=== PATIENT | male | born 1980 | race Caucasian/White ===

== ENCOUNTER 2017-06-06 11:14 | Emergency (ER) | payer SELFPAY ==
--- NOTE | 2017-06-06 13:31 | UC ---
Shoulder Pain HPI - HPI Summary HPI Summary: hit in right clavicle with a stack of cones weighing about 60 lbs. immediate swelling and tenderness - History of Current Complaint Chief Complaint: UCUpperExtremity Stated Complaint: SHOULDER PAIN Time Seen by Provider: 06/06/17 13:22 Hx Obtained From: Patient Onset/Duration: Sudden Onset, Lasting Hours Timing: Constant Location Of Pain: Is Discrete @ - right clavicle Character: Aching Aggravating Factor(s): Movement Alleviating Factor(s): Ice Associated Signs And Symptoms: Positive: Swelling, Bruising Related History: Dominant Hand Right - Allergies/Home Medications Allergies/Adverse Reactions: Allergies Allergy/AdvReac Type Severity Reaction Status Date / Time Ciprofloxacin [From Cipro] Allergy Unknown Verified 06/06/17 11:52 Reaction Details Home Medications: Home Medications NK [No Home Medications Reported] 06/06/17 [History Confirmed 06/06/17] PMH/Surg Hx/FS Hx/Imm Hx Previously Healthy: Yes - Surgical History Surgical History: None - Family History Known Family History: Positive: None - Social History Occupation: Employed Full-time Lives: With Family Alcohol Use: Occasionally Substance Use Type: None Smoking Status (MU): Current Every Day Smoker Review of Systems Constitutional: Negative Skin: Negative Eyes: Negative ENT: Negative Respiratory: Negative Cardiovascular: Negative Gastrointestinal: Negative Genitourinary: Negative Motor: Negative Neurovascular: Negative Musculoskeletal: Arthralgia - right medial clavicle, Edema - at site of impact Neurological: Negative Psychological: Negative Is Patient Immunocompromised?: No All Other Systems Reviewed And Are Negative: Yes Physical Exam Triage Information Reviewed: Yes Appearance: Well-Appearing, No Pain Distress, Well-Nourished Vital Signs: Initial Vital Signs Temp 98 F 06/06/17 11:29 Pulse 88 06/06/17 11:29 Resp 17 06/06/17 11:29 BP 134/97 06/06/17 11:29 Pulse Ox 100 06/06/17 11:29 Vital Signs Reviewed: Yes Eye Exam: Normal Eyes: Positive: Conjunctiva Clear ENT Exam: Normal ENT: Positive: Normal ENT inspection, Hearing grossly normal. Negative: Nasal drainage, Trismus, Muffled voice, Hoarse voice Dental Exam: Normal Neck exam: Normal Neck: Positive: Supple, Nontender Respiratory Exam: Normal Respiratory: Positive: Chest non-tender, Lungs clear, Normal breath sounds, No respiratory distress, No accessory muscle use Cardiovascular Exam: Normal Cardiovascular: Positive: RRR, No Murmur, Pulses Normal, Brisk Capillary Refill Musculoskeletal Exam: Normal Musculoskeletal: Positive: Strength Intact, ROM Intact, No Edema Neurological Exam: Normal Neurological: Positive: Alert, Muscle Tone Normal Psychological Exam: Normal Skin Exam: Normal Diagnostics - Radiology No standard instances Xray Interpretation: No Acute Changes Radiology Interpretation Completed By: Radiologist Shoulder Course/Dx - Course Assessment/Plan: rice, follow with pcp prn, off work remainder of day - Differential Dx/Diagnosis Provider Diagnoses: contusion right clavicle Discharge - Discharge Plan Condition: Stable Disposition: HOME Patient Education Materials: Ibuprofen (By mouth), Contusion in Adults (ED), RICE Therapy (ED) Forms: *Work Release Referrals: [facility] [place] [place]] - If Needed
[2017-06-06 13:34] VITALS: BP 125/81
--- NOTE | 2017-06-06 14:09 | RAD ---
INDICATION: Right clavicular pain COMPARISON: None TECHNIQUE: Routine frontal, Y and axial views were obtained. FINDINGS: The bony structures, joint spaces, and soft tissues are normal for age. IMPRESSION: NORMAL STUDY.
== END 2017-06-06 13:37 | disposition home or self-care (01) ==
LOC: UCEAST 11:14
DX: Z72.0 Tobacco use (principal); S40.011A Contusion of right shoulder, initial encounter; W22.8XXA Striking against or struck by other objects, initial encounter; Y93.9 Activity, unspecified; Y92.9 Unspecified place or not applicable; Y99.9 Unspecified external cause status
CPT/HCPCS: 99201; G0463

== ENCOUNTER 2017-08-28 07:33 | Emergency (ER) | payer OTHER ==
[2017-08-28] MEDS ORDERED: Lidocaine 2% VISCOUS* 15 ML UDC PO ONE (08:01)
[2017-08-28] MEDS ORDERED: NS 0.9% 1000 ML* 1,000 ML IV ONE (08:01)
[2017-08-28] MEDS ORDERED: Al Hydrox/Mg Hydrox/Simet LIQ* 30 ML UDC PO ONE (08:01)
[2017-08-28] MEDS ORDERED: Aspirin Low Dose CHEW TAB* 81 MG PO ONE (08:01)
[2017-08-28 08:28] LABS: ABS Basophils 0.1 10^3/ul (0-0.2); ABS Eosinophils 0.2 10^3/ul (0-0.6); ABS Lymphocytes 1.5 10^3/ul (1.0-4.8); ABS Monocytes 0.5 10^3/ul (0-0.8); ABS Neutrophils 4.7 10^3/ul (1.5-7.7); ABS Nucleated RBC 0 10^3/ul; Eosinophil % 2.9 % (0-6); Hematocrit 46 % (42-52); Hemoglobin 15.9 g/dl (14.0-18.0); Lymphocyte % 22.2 % (25-47); Mean Corpuscular HGB Conc 35 g/dl (31-36); Mean Corpuscular Hemoglobin 31 pg (27-31); Mean Corpuscular Volume 88 fL (80-94); Mean Platelet Volume 9 um3 (7.4-10.4); Nucleated Red Blood Cells % 0.1; Platelet Count 160 10^3/ul (150-450); Red Blood Count 5.15 10^6/ul (4.0-5.4); Red Cell Distribution Width 13 % (10.5-15)
--- NOTE | 2017-08-28 08:45 | RAD ---
INDICATION: Pain with deep inspiration COMPARISON: Most recent comparison chest x-rays dated October 22, 2009 TECHNIQUE: Single AP portable view of the chest was obtained. FINDINGS: Image quality is compromised due to the relative inferiority of a portable chest x-ray. The heart and mediastinum exhibit normal size and contour. The lungs are grossly clear. There is no evidence of a large pleural effusion. Visualized bones are normal for the patient's age. IMPRESSION: No radiographic evidence for acute cardiopulmonary abnormality on this portable chest x-ray.
[2017-08-28 08:46] LABS: INR 0.92 (0.77-1.02)
[2017-08-28 08:50] LABS: EGFR Non-African American 89.7 (>60)
[2017-08-28 11:55] VITALS: BP 137/93
--- NOTE | 2017-08-28 14:09 | ED ---
Idris Rosales Angela, scribed for Jose Miguel Degroot MD on 08/28/17 at 0749 . HPI Chest Pain - HPI Summary HPI Summary: This pt is a 36 y/o male presenting to [facility] [place] c/o left sided chest pain since 01: 00 today. Pt describes his pain as dull. Pt reports he got up this morning with left sided chest pain. Pt notes he can't take a deep breath secondary to pain. His pain radiates to the posterior neck. Pt reports he had nausea yesterday, but denies any today. Pt denies abd pain, diarrhea, SOB, rash, lower extremity pain, heart burn. No hx of blood clots and no FHx of blood blots. Denies taking any medications [employer]. - History of Current Complaint Chief Complaint: EDChestPainROMI Time Seen by Provider: 08/28/17 07:41 Hx Obtained From: Patient Onset/Duration: Started Hours Ago, Atraumatic, Still Present Timing: Lasting Hours Current Severity: Mild Pain Intensity: 3 Pain Scale Used: 0-10 Numeric Chest Pain Location: Left Anterior Chest Pain Radiates: Yes Chest Pain Radiates To:: Neck - posterior Character: Dull/Aching - Dull Aggravating Factor(s): Deep Breaths Alleviating Factor(s): Nothing Associated Signs and Symptoms: Positive: Chest Pain, Nausea - yesterday - Allergy/Home Medications Allergies/Adverse Reactions: Allergies Allergy/AdvReac Type Severity Reaction Status Date / Time No Known Allergies Allergy Unknown Verified 08/28/17 08:02 Reaction Details PMH/Surg Hx/FS Hx/Imm Hx Endocrine/Hematology History: Denies: Hx Diabetes Cardiovascular History: Denies: Hx Hypertension Sensory History: Denies: Hx Contacts or Glasses, Hx Hearing Aid Opthamlomology History: Denies: Hx Contacts or Glasses Psychiatric History: Reports: Hx Anxiety - IN THE PAST - Surgical History Hx Anesthesia Reactions: No Infectious Disease History: No Infectious Disease History: Denies: Hx Clostridium Difficile, Hx Hepatitis, Hx Human Immunodeficiency Virus (HIV), Hx of Known/Suspected MRSA, Hx Shingles, Hx Tuberculosis, Hx Known/ Suspected VRE, Hx Known/Suspected VRSA, History Other Infectious Disease, Traveled Outside the [place] in Last 30 Days - Family History Known Family History: Negative: Blood Disorder - blood clots - Social History Alcohol Use: Occasionally Substance Use Type: Reports: None Smoking Status (MU): Current Every Day Smoker Review of Systems Negative: Fever, Chills Positive: Chest Pain Negative: Shortness Of Breath Positive: Nausea - yesterday. Negative: Abdominal Pain, Diarrhea Negative: Other - LE pain Negative: Rash All Other Systems Reviewed And Are Negative: Yes Physical Exam - Summary Physical Exam Summary: General: well-appearing, no pain distress Skin: warm, color reflects adequate perfusion, dry Head: normal Eyes: EOMI, OJ ENT: normal Neck: supple, nontender Respiratory: CTA, breath sounds present Cardiovascular: RRR Abdomen: soft, nontender Bowel: present Musculoskeletal: normal, strength/ROM intact Neurological: normal, sensory/motor intact, A&O x3 Psychological: affect/mood appropriate Triage Information Reviewed: Yes Vital Signs On Initial Exam: Initial Vitals Temp Pulse Resp BP Pulse Ox 98.6 F 87 20 149/94 100 08/28/17 07:34 08/28/17 07:34 08/28/17 07:34 08/28/17 07:34 08/28/17 07:34 Vital Signs Reviewed: Yes Diagnostics - Vital Signs Vital Signs Temp Pulse Resp BP Pulse Ox 08/28/17 07:34 98.6 F 87 20 149/94 100 - Laboratory Lab Results: Lab Results 08/28/17 08/28/17 08/28/17 Range/Units 08:14 08:14 08:14 WBC 7.0 (3.5-10.8) 10^3/ul RBC 5.15 (4.0-5.4) 10^6/ul Hgb 15.9 (14.0-18.0) g/dl Hct 46 (42-52) % MCV 88 (80-94) fL MCH 31 (27-31) pg MCHC 35 (31-36) g/dl RDW 13 (10.5-15) % Plt Count 160 (150-450) 10^3/ul MPV 9 (7.4-10.4) um3 Neut % (Auto) 67.1 (38-83) % Lymph % (Auto) 22.2 L (25-47) % Preble % (Auto) 6.7 (1-9) % Eos % (Auto) 2.9 (0-6) % Baso % (Auto) 1.1 (0-2) % Absolute Neuts (auto) 4.7 (1.5-7.7) 10^3/ul Absolute Lymphs (auto) 1.5 (1.0-4.8) 10^3/ul Absolute Monos (auto) 0.5 (0-0.8) 10^3/ul Absolute Eos (auto) 0.2 (0-0.6) 10^3/ul Absolute Basos (auto) 0.1 (0-0.2) 10^3/ul Absolute Nucleated RBC 0 10^3/ul Nucleated RBC % 0.1 INR (Anticoag Therapy) 0.92 (0.77-1.02) APTT 29.6 (26.0-36.3) seconds D-Dimer, Quantitative < 200 (Less Than 230) ng/mL Sodium (133-145) mmol/L Potassium (3.5-5.0) mmol/L Chloride (101-111) mmol/L Carbon Dioxide (22-32) mmol/L Anion Gap (2-11) mmol/L BUN (6-24) mg/dL Creatinine (0.67-1.17) mg/dL Est GFR ( Amer) (>60) Est GFR (Non-Af Amer) (>60) BUN/Creatinine Ratio (8-20) Glucose (70-100) mg/dL Lactic Acid (0.5-2.0) mmol/L Calcium (8.6-10.3) mg/dL Magnesium (1.9-2.7) mg/dL Total Bilirubin (0.2-1.0) mg/dL AST (13-39) U/L ALT (7-52) U/L Alkaline Phosphatase (34-104) U/L Total Creatine Kinase (10-223) U/L CK-MB (CK-2) (0.6-6.3) ng/mL Troponin I (<0.04) ng/mL C-Reactive Protein (< 5.00) mg/L B-Natriuretic Peptide 13 ( - 100) pg/mL Total Protein (6.4-8.9) g/dL Albumin (3.2-5.2) g/dL Globulin (2-4) g/dL Albumin/Globulin Ratio (1-3) Lipase (11.0-82.0) U/L TSH (0.34-5.60) mcIU/mL 02/21/18 02/21/18 02/21/18 Range/Units 08:14 08:14 10:51 WBC (3.5-10.8) 10^3/ul RBC (4.0-5.4) 10^6/ul Hgb (14.0-18.0) g/dl Hct (42-52) % MCV (80-94) fL MCH (27-31) pg MCHC (31-36) g/dl RDW (10.5-15) % Plt Count (150-450) 10^3/ul MPV (7.4-10.4) um3 Neut % (Auto) (38-83) % Lymph % (Auto) (25-47) % Preble % (Auto) (1-9) % Eos % (Auto) (0-6) % Baso % (Auto) (0-2) % Absolute Neuts (auto) (1.5-7.7) 10^3/ul Absolute Lymphs (auto) (1.0-4.8) 10^3/ul Absolute Monos (auto) (0-0.8) 10^3/ul Absolute Eos (auto) (0-0.6) 10^3/ul Absolute Basos (auto) (0-0.2) 10^3/ul Absolute Nucleated RBC 10^3/ul Nucleated RBC % INR (Anticoag Therapy) (0.77-1.02) APTT (26.0-36.3) seconds D-Dimer, Quantitative (Less Than 230) ng/mL Sodium 136 (133-145) mmol/L Potassium 4.5 (3.5-5.0) mmol/L Chloride 102 (101-111) mmol/L Carbon Dioxide 27 (22-32) mmol/L Anion Gap 7 (2-11) mmol/L BUN 11 (6-24) mg/dL Creatinine 0.96 (0.67-1.17) mg/dL Est GFR ( Amer) 115.3 (>60) Est GFR (Non-Af Amer) 89.7 (>60) BUN/Creatinine Ratio 11.5 (8-20) Glucose 97 (70-100) mg/dL Lactic Acid 1.3 (0.5-2.0) mmol/L Calcium 9.2 (8.6-10.3) mg/dL Magnesium 1.8 L (1.9-2.7) mg/dL Total Bilirubin 0.50 (0.2-1.0) mg/dL AST 20 (13-39) U/L ALT 24 (7-52) U/L Alkaline Phosphatase 72 (34-104) U/L Total Creatine Kinase 64 (10-223) U/L CK-MB (CK-2) 0.7 (0.6-6.3) ng/mL Troponin I 0.00 0.00 (<0.04) ng/mL C-Reactive Protein 1.93 (< 5.00) mg/L B-Natriuretic Peptide ( - 100) pg/mL Total Protein 7.1 (6.4-8.9) g/dL Albumin 4.2 (3.2-5.2) g/dL Globulin 2.9 (2-4) g/dL Albumin/Globulin Ratio 1.4 (1-3) Lipase 14 (11.0-82.0) U/L TSH 1.98 (0.34-5.60) mcIU/mL Result Diagrams: 08/28/17 08:14 08/28/17 08:14 Lab Statement: Any lab studies that have been ordered have been reviewed, and results considered in the medical decision making process. - Radiology Chest XR Xray Interpretation: No Acute Changes - IMPRESSION: No radiographic evidence for acute cardiopulmonary abnormality on this portable chest x-ray. Dr. Degroot has reviewed this radiology report. Radiology Interpretation Completed By: Radiologist - EKG 07:41 Cardiac Rate: NL EKG Rhythm: Sinus Rhythm - at [address] Segment: Normal Ectopy: None Re-Evaluation - Re-Evaluation First Eval Re-Evaluation Time: 11:07 Comment: I reviewed the lab and chest XR results with the pt. Chest Pain Course/Dx - Course Course Of Treatment: Medications reviewed. Allergies noted. BP noted and advised to follow up with PCP. In the ED course, the pt was given IV fluids, aspirin, and Maalox. Chest XR is negative. CHEST PAIN GONE AFTER GI COCKTAIL. TROP NEG X 2. DISCUSSED RESULTS WITH PATIENT. F/U PMD; RETURN IF WORSE. - Diagnoses Provider Diagnoses: Elevated BP without diagnosis of hypertension, Chest pain Discharge - Discharge Plan Condition: Stable Disposition: HOME Patient Education Materials: Chest Pain (ED) Forms: *Work Release Referrals: [facility] [Provider Group] Additional Instructions: FOLLOW UP WITH YOUR DOCTOR. RETURN TO THE EMERGENCY DEPARTMENT FOR ANY WORSENING OF YOUR CONDITION OR QUESTIONS OR CONCERNS. Your blood pressure was elevated during todays visit; please follow up with your primary care provider within a week for further evaluation. The documentation as recorded by the Idris costa Angela accurately reflects the service I personally performed and the decisions made by me, Jose Miguel Degroot MD.
== END 2017-08-28 11:54 | disposition home or self-care (01) ==
LOC: ED 07:33
DX: R07.9 Chest pain, unspecified (principal); R03.0 Elevated blood-pressure reading, without diagnosis of hypertension; R11.0 Nausea; F17.210 Nicotine dependence, cigarettes, uncomplicated; Z79.899 Other long term (current) drug therapy; R06.09 Other forms of dyspnea
CPT/HCPCS: 36415; 71045; 80053; 82550; 82553; 83605; 83690; 83735; 83880; 84443; 84484; 85025; 85379; 85610; 85730; 86140; 93005; 96360; 99283; A9270-GY

== ENCOUNTER 2018-09-01 09:08 | Emergency (ER) | payer OTHER ==
[2018-09-01 09:23] VITALS: BP 141/89
--- NOTE | 2018-09-01 10:20 | UC ---
Upper Extremity HPI - HPI Summary HPI Summary: 37-year-old male comes in with a chief complaint of right wrist pain. On August 05, 2018 patient actually struck his right forearm on a wall. Been having pain at the distal right ulna ever since. Pain is worse with movement or palpation. It's better with rest and ice. No decreased sensation or range of motion. No skin break. Patient is also interested in smoking cessation. He requests medication for help with smoking cessation. Patient's in the past and then restarted. At this time he does have a primary care physician. No cough or chest congestion. No history of kidney problems. - History of Current Complaint Chief Complaint: UCUpperExtremity Stated Complaint: WRIST INJURY Time Seen by Provider: 09/01/18 09:15 Pain Intensity: 4 - Allergies/Home Medications Allergies/Adverse Reactions: Allergies Allergy/AdvReac Type Severity Reaction Status Date / Time No Known Allergies Allergy Unknown Verified 09/01/18 09:23 Reaction Details PMH/Surg Hx/FS Hx/Imm Hx Previously Healthy: Yes - Surgical History Surgical History: Yes Surgery Procedure, Year, and Place: left ear (3x) - Family History Known Family History: Positive: None Negative: Blood Disorder - blood clots - Social History Alcohol Use: Occasionally Substance Use Type: None Smoking Status (MU): Current Every Day Smoker Review of Systems All Other Systems Reviewed And Are Negative: Yes Constitutional: Positive: Negative Skin: Positive: Negative Eyes: Positive: Negative ENT: Positive: Negative Respiratory: Positive: Negative Cardiovascular: Positive: Negative Gastrointestinal: Positive: Negative Motor: Positive: Negative Neurovascular: Positive: Negative Musculoskeletal: Positive: Other: - SEE HPI Neurological: Positive: Negative Psychological: Positive: Negative Is Patient Immunocompromised?: No Physical Exam Triage Information Reviewed: Yes Appearance: Well-Appearing, No Pain Distress, Well-Nourished Vital Signs: Initial Vital Signs Temp 98.6 F 09/01/18 09:16 Pulse 77 09/01/18 09:16 Resp 18 09/01/18 09:16 BP 141/89 09/01/18 09:16 Pulse Ox 100 09/01/18 09:16 Vital Signs Reviewed: Yes Eye Exam: Normal Eyes: Positive: Conjunctiva Clear Neck exam: Normal Neck: Positive: Supple Respiratory: Positive: Lungs clear, Normal breath sounds, No respiratory distress Cardiovascular: Positive: RRR Musculoskeletal: Positive: Other: - Patient is tender to palpation in the right wrist over the distal ulna. He has full range of motion normal capillary refill no sensation deficit. He has no pain on the radial side. Neurological Exam: Normal Neurological: Positive: Alert, Muscle Tone Normal Psychological Exam: Normal Psychological: Positive: Normal Response To Family, Age Appropriate Behavior Skin Exam: Normal Upper Extremity Course/Dx - Course Course Of Treatment: Patient Name: BASILIO VALENTINE Medical Record#: [id number]. Ordering Physician: Jose Miguel Degroot MD Acct.#: [id number]. : 1980 Age: 37 Sex: M Location: [facility]. Exam Date: 09/01/18925 ADM Status: REG ER. Order Information: WRIST RIGHT 3+ VWS. Accession Number: [id number]. CPT: 39192. HISTORY: pain s/p injury , remote trauma, ulnar pain. COMPARISONS: None. VIEWS: 3, Frontal, lateral, and oblique views of the right wrist. FINDINGS: BONE DENSITY: Normal. BONES: There is no acute displaced fracture. JOINTS: There is no arthropathy. ALIGNMENT: There is no dislocation. SOFT TISSUES: Unremarkable. OTHER FINDINGS: None. IMPRESSION: NO ACUTE OSSEOUS INJURY. IF SYMPTOMS PERSIST, RECOMMEND REPEAT IMAGING. . <Electronically signed by Maevrick Wilkes MD in OV> 09/01/18953. I discussed the x-ray report with the patient. Patient's tender over the ulnar styloid. No fracture seen by radiologist. Patient was placed in a cock-up splint today by nursing is neurovascularly intact after placement of the splint by nursing. The plan is that this does not completely improved with a couple of days he should follow up with orthopedics as patient's had painful also month with this injury. We also discussed ice elevation anti-inflammatories. For smoking cessation I started him on Chantix. He plans follow-up with his primary care doctor within one month. - Differential Dx/Diagnosis Provider Diagnosis: Right wrist pain, Smoking trying to quit Discharge - Sign-Out/Discharge Documenting (check all that apply): Patient Departure All imaging exams completed and their final reports reviewed: Yes - Discharge Plan Condition: Stable Disposition: HOME Prescriptions: Varenicline (NF) [Chantix 1 MG TAB (NF)] 1 mg PO BID #42 tab Varenicline 0.5 mg Tab(Nf) [Chantix 0.5 MG TAB(NF)] 0 mg PO SEE INSTRUCTIONS # 11 tab Patient Education Materials: How to Stop Smoking (ED), Wrist Injury (ED) Referrals: [facility] [Outside] [facility] [place] [facility] [Outside] Bhavesh Davis MD [Medical Doctor] - Additional Instructions: FOLLOW UP WITH ORTHOPEDICS IF YOUR WRIST IS NOT COMPLETELY IMPROVED. FOLLOW UP WITH YOUR DOCTOR FOR SMOKING CESSATION. GET RECHECKED FOR ANY WORSENING OF YOUR CONDITION OR QUESTIONS OR CONCERNS. - Billing Disposition and Condition Condition: STABLE Disposition: Home
== END 2018-09-01 10:27 | disposition home or self-care (01) ==
LOC: UCEAST 09:08
DX: M25.531 Pain in right wrist (principal); F17.200 Nicotine dependence, unspecified, uncomplicated
CPT/HCPCS: 99213; G0463

== ENCOUNTER 2023-07-02 00:30 | Inpatient (IN) ==
[2023-07-02] MEDS ORDERED: Iodixanol (CONTRAST) 320 MG/ML 100 ML SDV IV ONE (00:38)
[2023-07-02 01:11] LABS: ABS Basophils 0.1 10^3/uL (0.0-0.1); ABS Eosinophils 0.4 10^3/uL (0.0-0.5); ABS Monocytes 0.7 10^3/uL (0.0-1.1); ABS Neutrophils 2.5 10^3/uL (1.5-7.6); ABS Nucleated RBC 0.01 10^3/ul; Eosinophil % 6.7 %; Hemoglobin 13.5 g/dL (13.2-16.3); Lymphocyte % 35.2 %; Mean Corpuscular Hemoglobin 31.3 pg (27-33); Mean Corpuscular Hgb Conc 33.8 g/dL (31-36); Mean Corpuscular Volume 92.4 fL (80-97); Mean Platelet Volume 7.5 fL (7.5-11.2); Nucleated Red Blood Cells % 0.1 %/100WBC (0.0-0.8); Platelet Count 221 10^3/uL (150-450); Red Blood Count 4.33 10^6/uL (4.06-5.63); White Blood Count 5.7 10^3/uL (3.6-10.2)
[2023-07-02 01:18] LABS: Activated Partial Thrombo Time 25.6 seconds (26.0-38.0); INR 1.03 (0.83-1.13)
[2023-07-02] MEDS ORDERED: Lactated Ringers 1000 ml BAG 1,000 ML IV ONE ×2 (01:20→01:47)
[2023-07-02 01:34] LABS: High Sens Troponin Baseline < 3 pg/mL (<20)
[2023-07-02 01:37] LABS: ALT 14 U/L (7-52); AST 16 U/L (13-39); Albumin 3.9 g/dL (3.2-5.2); Albumin/Globulin Ratio 1.8 (1-3); Alkaline Phosphatase 60 U/L (35-149); Anion Gap 9 mmol/L (2-16); Blood Urea Nitrogen 13 mg/dL (6-24); CO2 Carbon Dioxide 27 mmol/L (22-32); Calcium 7.8 mg/dL (8.6-10.3); Chloride 100 mmol/L (101-111); Cholesterol 161 mg/dL; Creatinine, Serum 0.96 mg/dL (0.67-1.17); Direct Bilirubin 0.1 mg/dL (0.03-0.18); Globulin 2.2 g/dL (2-4); Glucose 107 mg/dL (70-100); HDL Cholesterol 44.5 mg/dL; Indirect Bilirubin 0.2 mg/dL (0.3-1.0); LDL Cholesterol 59 mg/dL; Potassium 3.5 mmol/L (3.5-5.0); Sodium 136 mmol/L (135-145); Total Bilirubin 0.3 mg/dL (0.2-1.0); Total Protein 6.1 g/dL (6.4-8.9); Triglycerides 290 mg/dL; eGFR CKD-EPI 102.5 (>60)
[2023-07-02 01:57] LABS: Alcohol, S 211 mg/dL (<13)
[2023-07-02] MEDS ORDERED: Lorazepam PYXIS KEY PRN ×2 (02:01→14:41)
[2023-07-02] MEDS: LORazepam 2 mg VIAL 1 ml IV PUSH ONE ×5 (02:07→14:50)
[2023-07-02 02:25] LABS: Creatine Kinase 83 U/L (10-223)
[2023-07-02 02:32] LABS: High Sensitivity Troponin 1 Hr < 3 pg/mL (<20)
[2023-07-02 02:56] LABS: Urine Appearance Clear; Urine Bilirubin Negative (Negative); Urine Blood Negative (Negative); Urine Color Yellow; Urine Glucose Negative (Negative); Urine Ketones Negative (Negative); Urine Nitrite Negative (Negative); Urine Protein Negative (Negative); Urine Specific Gravity 1.012 (1.002-1.030); Urine Urobilinogen Negative (Negative)
[2023-07-02 03:06] LABS: Urine Benzodiazepine Screen None Detected (None Detect); Urine Cannabinoids Screen None Detected (None Detect); Urine Opiates Screen None Detected (None Detect)
[2023-07-02 03:12] LABS: Acetaminophen < 15 mcg/mL; Lithium < 0.16 mmol/L (0.6-1.2); Salicylate < 2.50 mg/dL (<30)
[2023-07-02] MEDS ORDERED: LORazepam 2 mg VIAL 1 ml ONE ×2 (03:57→04:36)
[2023-07-02] MEDS ORDERED: Ondansetron 4 mg VIAL 2 MG/ML 2 ml VIAL IV ONE (04:17)
[2023-07-02] MEDS ORDERED: Thiamine 100 MG/ML 2 ml VIAL 500 MG in NS 0.9% 250 ml 250 ML IV ONE (04:47)
[2023-07-02] MEDS ORDERED: Dexmedetomidine 1,000 MCG in NS 0.9% 250 ml 240 ML IV SCH (05:00)
[2023-07-02] MEDS ORDERED: Lactated Ringers 1000 ml BAG 1,000 ML IV SCH (05:00)
[2023-07-02] MEDS: LORazepam 2 mg VIAL 1 ml IV PUSH SCH ×4 (05:05→18:07)
[2023-07-02 05:09] LABS: Osmolality Serum 337 mOsm/kg (275-295)
[2023-07-02] MEDS ORDERED: Thiamine 100 MG/ML 2 ml VIAL 500 MG in NS 0.9% 250 ml 250 ML IV SCH (06:00)
[2023-07-02 06:17] LABS: Lipase 19 U/L (11.0-82.0)
[2023-07-02] MEDS: Enoxaparin 40 MG/0.4 ML SYR SUBCUT SCH (06:28)
[2023-07-02] MEDS: Multivitamins/Minerals TAB PO SCH (09:00)
[2023-07-02 14:16] LABS: Albumin/Globulin Ratio 1.7 (1-3); Calcium 8.2 mg/dL (8.6-10.3); Creatinine, Serum 0.84 mg/dL (0.67-1.17); Globulin 2.4 g/dL (2-4); Potassium 4.1 mmol/L (3.5-5.0); Total Bilirubin 0.6 mg/dL (0.2-1.0); Total Protein 6.4 g/dL (6.4-8.9); eGFR CKD-EPI 113.1 (>60)
[2023-07-02 14:36] LABS: Osmolality Serum 280 mOsm/kg (275-295)
[2023-07-02 14:36] LABS: Urine Osmo 642 mOsm/kg (150-1150)
[2023-07-02] MEDS: Thiamine 100 MG/ML 2 ml VIAL 500 MG in NS 0.9% 250 ml 250 ML IV SCH ×2 (15:32→21:53)
[2023-07-02] MEDS: Dexmedetomidine 1,000 MCG in NS 0.9% 250 ml 240 ML IV SCH ×2 (18:20→20:27)
[2023-07-03] MEDS: Dexmedetomidine 1,000 MCG in NS 0.9% 250 ml 240 ML IV SCH (02:27)
[2023-07-03 04:28] LABS: Hematocrit 43.1 % (38-53); Hemoglobin 14.4 g/dL (13.2-16.3); Mean Corpuscular Hemoglobin 30.9 pg (27-33); Mean Corpuscular Hgb Conc 33.3 g/dL (31-36); Mean Corpuscular Volume 92.6 fL (80-97); Mean Platelet Volume 7.7 fL (7.5-11.2); Platelet Count 200 10^3/uL (150-450); Red Blood Count 4.65 10^6/uL (4.06-5.63); Red Cell Distribution Width 12.7 % (12-17); White Blood Count 12.3 10^3/uL (3.6-10.2)
[2023-07-03 04:47] LABS: Albumin/Globulin Ratio 1.6 (1-3); Calcium 8.3 mg/dL (8.6-10.3); Creatinine, Serum 0.85 mg/dL (0.67-1.17); Globulin 2.5 g/dL (2-4); Magnesium 1.8 mg/dL (1.9-2.7); Total Bilirubin 0.9 mg/dL (0.2-1.0); Total Protein 6.5 g/dL (6.4-8.9); eGFR CKD-EPI 112.7 (>60)
[2023-07-03] MEDS: Thiamine 100 MG/ML 2 ml VIAL 500 MG in NS 0.9% 250 ml 250 ML IV SCH ×3 (05:48→22:49)
[2023-07-03] MEDS: Enoxaparin 40 MG/0.4 ML SYR SUBCUT SCH (05:48)
[2023-07-03] MEDS ORDERED: Magnesium Sulfate IV 1GM/100ML 1 GM/100 ML BAG IV ONE (06:06)
[2023-07-03] MEDS: Multivitamins/Minerals TAB PO SCH (08:15)
[2023-07-03] MEDS ORDERED: Lactated Ringers 1000 ml BAG 500 ML IV ONE (10:22)
[2023-07-03] MEDS: LORazepam 2 mg VIAL 1 ml IV PUSH SCH ×2 (12:30→14:40)
[2023-07-04] MEDS: Thiamine 100 MG/ML 2 ml VIAL 500 MG in NS 0.9% 250 ml 250 ML IV SCH ×3 (06:07→22:17)
[2023-07-04] MEDS: Enoxaparin 40 MG/0.4 ML SYR SUBCUT SCH (06:07)
[2023-07-04] MEDS: Multivitamins/Minerals TAB PO SCH (08:35)
[2023-07-04 13:34] LABS: ABS Basophils 0.1 10^3/uL (0.0-0.1); ABS Eosinophils 0.3 10^3/uL (0.0-0.5); ABS Lymphocytes 1.1 10^3/uL (1.0-4.8); ABS Monocytes 0.6 10^3/uL (0.0-1.1); ABS Neutrophils 5.2 10^3/uL (1.5-7.6); ABS Nucleated RBC 0.01 10^3/ul; Eosinophil % 3.9 %; Hematocrit 42.5 % (38-53); Hemoglobin 14.4 g/dL (13.2-16.3); Lymphocyte % 15.5 %; Mean Corpuscular Hemoglobin 31.5 pg (27-33); Mean Corpuscular Hgb Conc 33.9 g/dL (31-36); Mean Corpuscular Volume 93.1 fL (80-97); Nucleated Red Blood Cells % 0.1 %/100WBC (0.0-0.8); Platelet Count 195 10^3/uL (150-450); Red Blood Count 4.56 10^6/uL (4.06-5.63); Red Cell Distribution Width 12.8 % (12-17); White Blood Count 7.3 10^3/uL (3.6-10.2)
[2023-07-04 14:05] LABS: Calcium 8.3 mg/dL (8.6-10.3); Creatinine, Serum 0.89 mg/dL (0.67-1.17); Magnesium 2.1 mg/dL (1.9-2.7); Potassium 3.5 mmol/L (3.5-5.0); eGFR CKD-EPI 111.1 (>60)
[2023-07-04] MEDS ORDERED: Potassium Chloride LIQUID 20 MEQ/15 ML LIQUID PO ONE (15:04)
[2023-07-05] MEDS: Thiamine 100 MG/ML 2 ml VIAL 500 MG in NS 0.9% 250 ml 250 ML IV SCH (05:27)
[2023-07-05] MEDS: Enoxaparin 40 MG/0.4 ML SYR SUBCUT SCH (05:27)
[2023-07-05] MEDS: Multivitamins/Minerals TAB PO SCH (09:02)
[2023-07-05 13:38] VITALS: BP 162/98
[2023-07-06] MEDS ORDERED: Thiamine 100 MG/ML 2 ml VIAL 250 MG in NS 0.9% 100 ml BAG 100 ML IV SCH (09:00)
== END 2023-07-05 14:39 | disposition home or self-care (01) | DRG 917 ==
LOC: ED 00:30 → EDHOLD 00:30 → OBSVTOIN 04:22 → SUATTDRO 04:22 → ICU 04:22 → MED 07-03 18:01
PROVIDERS: ADMIT Internal Medicine; ATTEND Hospitalist